=== PATIENT | male | born 1945 | race American Indian/Alaskan Native ===

== ENCOUNTER 2017-01-05 10:33 | Outpatient (CLI) | payer MEDICARE ==
--- NOTE | 2017-01-05 13:12 | XRay Report ---
RIGHT HIP, 2 views: History: Right hip pain. The bony architecture is intact without evidence of fracture or dislocation. No significant soft tissue abnormality is seen. IMPRESSION: Normal right hip.
--- NOTE | 2017-01-05 13:13 | XRay Report ---
LUMBOSACRAL SPINE, 3 VIEWS: History: Back pain Findings: Borderline bone mineralization. The vertebral bodies, disk spaces and posterior elements are intact. No compression deformity or malalignment. Mild multilevel degenerative disc disease and moderate multilevel facet hypertrophy are identified. The sacrum and SI joints are within normal limits. Impression: Lumbar spondylosis. No acute process noted.
== END 2017-01-05 10:34 | disposition home or self-care (01) ==
LOC: XRAY 10:33
PROVIDERS: ATTEND Internal Medicine Nephrology
DX: M51.36 Other intervertebral disc degeneration, lumbar region (principal); M47.896 Other spondylosis, lumbar region; M25.551 Pain in right hip
CPT/HCPCS: 72100

== ENCOUNTER 2018-09-15 06:25 | Day surgery (SDC) | payer MEDICARE ==
[2018-09-15] MEDS ORDERED: NACL 0.9% 1000 ML 1,000 ML IV SCH (07:00)
[2018-09-15] MEDS ORDERED: WATER FOR IRRIG STERILE IR ONE (07:21)
--- NOTE | 2018-09-15 08:08 | Anesthesia Consultation ---
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
--- NOTE | 2018-09-15 08:10 | Anesthesia Day of Surgery ---
Anesthesia Day of Surgery - Day of Surgery Patient Examined: Yes Patient H&P Reviewed: Yes Patient is NPO: Yes Beta Blockers: Yes Cardiac Clearance: Yes
[2018-09-15] MEDS ORDERED: DIPRIVAN 10 MG/ML IV ONE (08:13)
--- NOTE | 2018-09-15 08:44 | Short Stay Summary ---
Short Stay Documentation - Allergies and Medications Current Medications: Allergies No Known Allergies Allergy (Verified 09/14/18 12:15) Home Medications Medication Instructions Recorded Confirmed Last Taken Type Adult Low Dose Aspirin EC 81 mg PO DAILY 09/14/18 09/15/18 09/10/18 History Allopurinol 300 mg PO TID 09/14/18 09/15/18 09/14/18 History Cardizem CD 240 mg PO DAILY 09/14/18 09/15/18 09/14/18 History Colchicine 0.6 mg PO DAILY 09/14/18 09/15/18 09/14/18 History Eliquis 5 mg PO DAILY 09/14/18 09/15/18 09/10/18 History Lisinopril 40 mg PO DAILY 09/14/18 09/15/18 09/14/18 History Metoprolol 50 mg PO DAILY 09/14/18 09/15/18 09/14/18 History Niacin 500 mg PO DAILY 09/14/18 09/15/18 09/14/18 History Hydrocodone-Acetamn 7.5-325/15 7.5 - 325 mg PO Q6H PRN 09/15/18 09/15/18 09/08/18 History Iron 28 mg PO DAILY 09/15/18 09/15/18 09/08/18 History Promethazine 5 - 325 mg PO DAILY 09/15/18 09/15/18 09/14/18 History Active Medications Sodium Chloride (Nacl 0.9% 1000 Ml) 1,000 mls @ 50 mls/hr IV DIRECT DENA Last Admin: 09/15/18 07:55 Dose: 50 mls/hr Documented by: - Brief post op/procedure progress note Date of procedure: 09/15/18 Pre-op diagnosis: Colon cancer screening 2. H/o colon polyps Post-op diagnosis: same (1. Colon polyps 2. Diverticulosis 3. Internal hemorrhoids) Procedure: Colonoscopy with cold biopsy polypectomy Anesthesia: MAC Findings: as above Surgeon: MARLENE VILLANUEVA Estimated blood loss: none Pathology: list (Rectal polyp) Specimen disposition: to lab Condition: stable - Disposition Condition at discharge: Stable Disposition: DC- TO HOME OR SELFCARE Short Stay Discharge Plan Activity: no restrictions Weight Bearing Status: Full Weight Bearing Diet: regular, low salt Follow up with: VICTORIANO VILLANUEVA JR, MD [Primary Care Provider] - 7 Days
[2018-09-15 09:04] VITALS: BP 155/99
== END 2018-09-15 06:26 | disposition home or self-care (01) ==
LOC: GIO 06:25
PROVIDERS: ATTEND Internal Medicine Gastroenterology
DX: Z12.11 Encounter for screening for malignant neoplasm of colon (principal); K62.1 Rectal polyp; K57.30 Diverticulosis of large intestine without perforation or abscess without bleeding; K64.8 Other hemorrhoids; E78.00 Pure hypercholesterolemia, unspecified; Z98.890 Other specified postprocedural states; Z79.899 Other long term (current) drug therapy; Z87.891 Personal history of nicotine dependence; Z86.010 Personal history of colon polyps; Z90.49 Acquired absence of other specified parts of digestive tract; Z86.2 Personal history of diseases of the blood and blood-forming organs and certain disorders involving the immune mechanism; Z86.73 Personal history of transient ischemic attack (TIA), and cerebral infarction without residual deficits
CPT/HCPCS: 45380; 88305; J2704; J7030